=== PATIENT | female | born 1965 | race Caucasian/White ===

== ENCOUNTER 2017-07-06 06:58 | Outpatient (CLI) | payer OTHER | END 2017-07-06 07:04 | disposition home or self-care (01) | LOC: LAB 06:58 | DX: D70.8 Other neutropenia (principal) ==

== ENCOUNTER 2017-07-06 08:18 | Outpatient (CLI) | payer OTHER | END 2017-07-06 08:30 | disposition home or self-care (01) | LOC: TOM 08:18 | DX: C50.212 Malignant neoplasm of upper-inner quadrant of left female breast (principal) ==

== ENCOUNTER 2017-07-15 10:03 | Outpatient (CLI) | payer OTHER | END 2017-07-15 10:06 | disposition home or self-care (01) | LOC: NUCLEAR 10:03 | DX: C50.212 Malignant neoplasm of upper-inner quadrant of left female breast (principal) | CPT/HCPCS: 78306; A9503 ==

== ENCOUNTER 2017-08-17 10:28 | Outpatient (CLI) | payer OTHER | END 2017-08-17 10:38 | disposition home or self-care (01) | LOC: RAD 10:28 | DX: M54.5 Low back pain (principal); C50.412 Malignant neoplasm of upper-outer quadrant of left female breast ==

== ENCOUNTER 2017-08-17 13:46 | Outpatient (CLI) | payer OTHER | END 2017-08-17 14:04 | disposition home or self-care (01) | LOC: LAB 13:46 | DX: D64.9 Anemia, unspecified (principal); N39.0 Urinary tract infection, site not specified ==

== ENCOUNTER 2017-09-25 15:34 | Outpatient (CLI) | payer OTHER | END 2017-09-25 15:45 | disposition home or self-care (01) | LOC: SONOGRAMA 15:34 | DX: N63.11 Unspecified lump in the right breast, upper outer quadrant (principal); N60.11 Diffuse cystic mastopathy of right breast; N60.12 Diffuse cystic mastopathy of left breast ==

== ENCOUNTER 2018-05-18 14:14 | Outpatient (CLI) | payer OTHER | END 2018-05-18 14:24 | disposition home or self-care (01) | LOC: SONOGRAMA 14:14 | DX: N60.11 Diffuse cystic mastopathy of right breast (principal); N60.12 Diffuse cystic mastopathy of left breast; C50.412 Malignant neoplasm of upper-outer quadrant of left female breast ==

== ENCOUNTER 2018-05-18 14:51 | Outpatient (CLI) | payer OTHER | END 2018-05-18 15:03 | disposition home or self-care (01) | LOC: LAB 14:51 | DX: N20.0 Calculus of kidney (principal); Z51.81 Encounter for therapeutic drug level monitoring ==

== ENCOUNTER 2018-05-19 08:25 | Outpatient (CLI) | payer OTHER | END 2018-05-19 08:38 | disposition home or self-care (01) | LOC: RAD 08:25 → TOM 09:30 | DX: C50.412 Malignant neoplasm of upper-outer quadrant of left female breast (principal); R06.02 Shortness of breath; N60.11 Diffuse cystic mastopathy of right breast; N60.12 Diffuse cystic mastopathy of left breast ==

== ENCOUNTER 2018-05-21 08:32 | Outpatient (CLI) | payer OTHER | END 2018-05-21 09:00 | disposition home or self-care (01) | LOC: NUCLEAR 08:32 | DX: I87.2 Venous insufficiency (chronic) (peripheral) (principal); I74.2 Embolism and thrombosis of arteries of the upper extremities ==

== ENCOUNTER → 2018-05-24 | Outpatient (CLI) | payer OTHER | END | disposition home or self-care (01) | LOC: NUCLEAR 08:00 | DX: I73.9 Peripheral vascular disease, unspecified (principal); I82.A13 Acute embolism and thrombosis of axillary vein, bilateral ==

== ENCOUNTER 2018-06-17 07:55 | Outpatient (CLI) | payer OTHER | END 2018-06-17 08:08 | disposition home or self-care (01) | LOC: LAB 07:55 | DX: C50.412 Malignant neoplasm of upper-outer quadrant of left female breast (principal); C78.00 Secondary malignant neoplasm of unspecified lung; D55.0 Anemia due to glucose-6-phosphate dehydrogenase [G6PD] deficiency ==

== ENCOUNTER → 2018-06-22 | Outpatient (CLI) | payer OTHER | END | disposition home or self-care (01) | LOC: NUCLEAR 08:08 | DX: C50.412 Malignant neoplasm of upper-outer quadrant of left female breast (principal); C78.00 Secondary malignant neoplasm of unspecified lung; Z08 Encounter for follow-up examination after completed treatment for malignant neoplasm | CPT/HCPCS: 78815; A9552 ==

== ENCOUNTER 2018-08-03 09:16 | Outpatient (CLI) | payer OTHER | END 2018-08-03 10:32 | disposition home or self-care (01) | LOC: LAB 09:16 | DX: D64.89 Other specified anemias (principal) ==

== ENCOUNTER 2018-08-13 07:53 | Outpatient (CLI) | payer OTHER | END 2018-08-13 07:59 | disposition home or self-care (01) | LOC: LAB 07:53 | DX: D64.89 Other specified anemias (principal); D70.1 Agranulocytosis secondary to cancer chemotherapy ==

== ENCOUNTER 2018-08-23 16:15 | Outpatient (CLI) | payer OTHER | END 2018-08-23 16:26 | disposition home or self-care (01) | LOC: LAB 16:15 | DX: D64.89 Other specified anemias (principal); D70.1 Agranulocytosis secondary to cancer chemotherapy ==

== ENCOUNTER 2018-09-07 11:17 | Outpatient (CLI) | payer OTHER | END 2018-09-07 11:31 | disposition home or self-care (01) | LOC: LAB 11:17 | DX: D64.89 Other specified anemias (principal); D70.1 Agranulocytosis secondary to cancer chemotherapy ==

== ENCOUNTER 2018-09-15 08:29 | Outpatient (CLI) | payer OTHER | END 2018-09-15 08:38 | disposition home or self-care (01) | LOC: LAB 08:29 | DX: D64.89 Other specified anemias (principal); D70.1 Agranulocytosis secondary to cancer chemotherapy ==

== ENCOUNTER 2018-09-21 13:37 | Outpatient (CLI) | payer OTHER | END 2018-09-21 13:50 | disposition home or self-care (01) | LOC: LAB 13:37 | DX: D64.89 Other specified anemias (principal); D70.1 Agranulocytosis secondary to cancer chemotherapy ==

== ENCOUNTER 2018-10-05 15:38 | Outpatient (CLI) | payer OTHER | END 2018-10-05 15:54 | disposition home or self-care (01) | LOC: LAB 15:38 | DX: D64.89 Other specified anemias (principal); D70.1 Agranulocytosis secondary to cancer chemotherapy ==

== ENCOUNTER → 2018-10-13 09:52 | Outpatient (CLI) | payer OTHER | END | disposition home or self-care (01) | LOC: LAB 09:52 | DX: D64.89 Other specified anemias (principal); D70.1 Agranulocytosis secondary to cancer chemotherapy ==

== ENCOUNTER 2018-10-20 08:46 | Outpatient (CLI) | payer OTHER | END 2018-10-20 08:50 | disposition home or self-care (01) | LOC: LAB 08:46 | DX: D64.89 Other specified anemias (principal); D70.1 Agranulocytosis secondary to cancer chemotherapy ==

== ENCOUNTER 2018-10-28 07:53 | Outpatient (CLI) | payer OTHER | END 2018-10-28 08:02 | disposition home or self-care (01) | LOC: LAB 07:53 | DX: D64.89 Other specified anemias (principal); R74.0 Nonspecific elevation of levels of transaminase and lactic acid dehydrogenase [LDH]; E78.00 Pure hypercholesterolemia, unspecified; C50.411 Malignant neoplasm of upper-outer quadrant of right female breast ==

== ENCOUNTER 2018-11-30 09:04 | Outpatient (CLI) | payer OTHER | END 2018-11-30 09:11 | disposition home or self-care (01) | LOC: LAB 09:04 | DX: D64.89 Other specified anemias (principal); R74.0 Nonspecific elevation of levels of transaminase and lactic acid dehydrogenase [LDH]; R78.0 Finding of alcohol in blood; C50.411 Malignant neoplasm of upper-outer quadrant of right female breast ==

== ENCOUNTER 2018-11-30 09:59 | Outpatient (CLI) | payer OTHER | END 2018-11-30 11:00 | disposition home or self-care (01) | LOC: TOM 09:59 | DX: C50.412 Malignant neoplasm of upper-outer quadrant of left female breast (principal); C78.00 Secondary malignant neoplasm of unspecified lung; C77.3 Secondary and unspecified malignant neoplasm of axilla and upper limb lymph nodes; C77.1 Secondary and unspecified malignant neoplasm of intrathoracic lymph nodes; C78.7 Secondary malignant neoplasm of liver and intrahepatic bile duct ==

== ENCOUNTER 2019-02-09 10:08 | Outpatient (CLI) | payer OTHER ==
[2019-02-10] MEDS ORDERED: IMODIUM A-D2 M2 (10:47)
[2019-02-10] MEDS ORDERED: NAC600 MG (10:47)
[2019-02-10] MEDS ORDERED: DAFLONEX-XL 11300 MG PO (10:47)
[2019-02-10] MEDS ORDERED: RESTORA CAPSUL1 EACH (10:48)
== END 2019-02-09 10:15 | disposition home or self-care (01) ==
LOC: LAB 10:08
DX: D64.89 Other specified anemias (principal); R74.0 Nonspecific elevation of levels of transaminase and lactic acid dehydrogenase [LDH]; E83.52 Hypercalcemia; R53.82 Chronic fatigue, unspecified; I07.2 Rheumatic tricuspid stenosis and insufficiency; C78.00 Secondary malignant neoplasm of unspecified lung; C50.612 Malignant neoplasm of axillary tail of left female breast

== ENCOUNTER 2019-02-10 10:38 | Inpatient (IN) | payer OTHER ==
[~2019-02-10] VITALS: Ht 91.4 cm; Wt 5.0 kg
[2019-02-10] MEDS ORDERED: NAC600 MG (10:47)
[2019-02-10] MEDS ORDERED: IMODIUM A-D2 M2 (10:47)
[2019-02-10] MEDS ORDERED: DAFLONEX-XL 11300 MG PO (10:47)
[2019-02-10] MEDS ORDERED: RESTORA CAPSUL1 EACH (10:48)
== END 2019-02-16 10:16 | disposition expired | DRG 871 ==
LOC: ER 10:38 → ICU-2 18:51 → SEC-K 18:51 → ICU-2 02-11 07:20 → SEC-K 02-12 15:53 → SURH 02-13 01:33 → MEDJ 02-14 19:08
PROVIDERS: ADMIT Internal Medicine Hematology & Oncology
PROC: 30233N1 Transfusion of Nonautologous Red Blood Cells into Peripheral Vein, Percutaneous Approach (ICD-10-PCS; 2019-02-10)
PROC: 0T9B70Z Drainage of Bladder with Drainage Device, Via Natural or Artificial Opening (ICD-10-PCS; 2019-02-10)
PROC: 8E0ZXY6 Isolation (ICD-10-PCS; 2019-02-10)
PROC: B246ZZZ Ultrasonography of Right and Left Heart (ICD-10-PCS; principal; 2019-02-11)
PROC: BB24ZZZ Computerized Tomography (CT Scan) of Bilateral Lungs (ICD-10-PCS; 2019-02-11)
PROC: 4A033R1 Measurement of Arterial Saturation, Peripheral, Percutaneous Approach (ICD-10-PCS; 2019-02-11)
PROC: 3E0F7GC Introduction of Other Therapeutic Substance into Respiratory Tract, Via Natural or Artificial Opening (ICD-10-PCS; 2019-02-11)
PROC: 30233R1 Transfusion of Nonautologous Platelets into Peripheral Vein, Percutaneous Approach (ICD-10-PCS; 2019-02-11)
PROC: 02HV33Z Insertion of Infusion Device into Superior Vena Cava, Percutaneous Approach (ICD-10-PCS; 2019-02-12)
PROC: 4A12X4Z Monitoring of Cardiac Electrical Activity, External Approach (ICD-10-PCS; 2019-02-13)
PROC: BW28ZZZ Computerized Tomography (CT Scan) of Head (ICD-10-PCS; 2019-02-15)
PROC: 5A09457 Assistance with Respiratory Ventilation, 24-96 Consecutive Hours, Continuous Positive Airway Pressure (ICD-10-PCS; 2019-02-15)
DX: A41.9 Sepsis, unspecified organism (principal); D65 Disseminated intravascular coagulation [defibrination syndrome]; K72.00 Acute and subacute hepatic failure without coma; I50.33 Acute on chronic diastolic (congestive) heart failure; I21.4 Non-ST elevation (NSTEMI) myocardial infarction; J96.01 Acute respiratory failure with hypoxia; T83.511A Infection and inflammatory reaction due to indwelling urethral catheter, initial encounter; C78.02 Secondary malignant neoplasm of left lung; C78.7 Secondary malignant neoplasm of liver and intrahepatic bile duct; D68.8 Other specified coagulation defects; J90 Pleural effusion, not elsewhere classified; R18.8 Other ascites; E87.4 Mixed disorder of acid-base balance; N17.8 Other acute kidney failure; C79.51 Secondary malignant neoplasm of bone; G40.804 Other epilepsy, intractable, without status epilepticus; C79.49 Secondary malignant neoplasm of other parts of nervous system; D62 Acute posthemorrhagic anemia; C50.412 Malignant neoplasm of upper-outer quadrant of left female breast; K31.84 Gastroparesis; I11.0 Hypertensive heart disease with heart failure; I08.1 Rheumatic disorders of both mitral and tricuspid valves; E83.52 Hypercalcemia; N93.8 Other specified abnormal uterine and vaginal bleeding; F41.1 Generalized anxiety disorder; Z17.0 Estrogen receptor positive status [ER+]; Z66 Do not resuscitate